=== PATIENT | female | born 1975 | race Caucasian/White ===

== ENCOUNTER → 2020-10-28 02:02 | Outpatient (CLI) | payer OTHER, SELFPAY ==
[2020-10-28 19:23] LABS: SARS-CoV-2 RNA PCR Negative
== END ==
PROVIDERS: PCP Internal Medicine; Visit Provider Otolaryngology
DX: Z01.812 Encounter for preprocedural laboratory examination (principal); Z20.822 Contact with and (suspected) exposure to COVID-19
CPT/HCPCS: C9803; U0003; U0005

== ENCOUNTER 2020-10-31 02:38 | Day surgery (SDC) | payer OTHER, SELFPAY ==
[2020-10-23 12:40] VITALS: BMI 23.8
--- NOTE | 2020-10-29 10:11 | PM.IMHP ---
H&P: HPI History of Present Illness Date/Time: 10/29/20 10:11 45 year old patient with a history of chronic tonsillitis tonsil stones and bad breath as well as sore throat presents for tonsillectomy. No changes in symptoms or medical history. Chief Complaint: Chronic tonsillitis, tonsil stones, bad breath Review of Systems Constitutional: Constitutional: Denies fatigue, Denies fever(s) and Denies lethargy Eyes: Eyes: Denies blurry vision and Denies change in vision ENT: Reports as per HPI Cardiovascular: Cardiovascular: Denies chest pain Respiratory: Respiratory: Denies cough Endocrine: Endocrine: Denies fatigue Hematologic/Lymphatic: Hematologic/Lymphatic: Denies easy bleeding, Denies easy bruising and Denies lymphadenopathy Allergic/Immunologic: Allergic/Immunologic: Denies seasonal rhinorrhea [facility] Social History Social History (Updated 10/22/20 @ 11:29 by Minna Scott MA) Years smoked: 28 Smoking status: Current every day smoker Tobacco type: cigarettes Alcohol intake: never Substance use: current Substance use type: marijuana Other substance usage details: EDIBLES Last use: 10/09/20 Spiritual care concerns: No Meds Home Medications and Allergies Home Medications Medication Instructions Recorded Confirmed Type buprenorphine 8 mg-naloxone 2 mg 1 tablet SUBLINGUAL TID 10/22/20 10/23/20 History sublingual tablet meloxicam 15 mg tablet 15 mg PO DAILY 10/22/20 10/23/20 History sumatriptan succinate 50 mg tablet 50 mg PO ONCE PRN 10/22/20 10/23/20 History topiramate 50 mg tablet 50 mg PO BID 10/22/20 10/23/20 History albuterol sulfate 1 puff INHALATION Q6H PRN 10/23/20 10/23/20 History Allergies Allergy/AdvReac Type Severity Reaction Status Date / Time ciprofloxacin Allergy Intermediate HIVES Verified 10/23/20 12:38 morphine Allergy Intermediate ITCHING Verified 10/23/20 12:38 Exam Const: General: cooperative, healthy appearing, comfortable, well developed and alert HENMT: Head: normal to inspection, normocephalic and atraumatic Ears: hearing grossly normal bilaterally, external ears normal, TM's normal bilaterally and EAC's normal General nose exam: Normal external nose present, Normal nares present, No nasal polyps present, Normal nasal mucous membranes and turbinates present and Normal septum present Face and sinus: normal facial exam Mouth: Yes Normal oral and palatal mucosa present, Yes lip normal, Yes tongue normal, Yes oropharynx normal and Yes moist mucous membranes Teeth and gingiva: dentition normal and gingiva normal Throat: posterior oropharynx normal, tonisls abnormal (2-3+, stones present, cryptic, exudative mildly) and uvula midline Eyes: General: appearance normal, both eyes and all related structures Periorbital: periorbital findings normal Eyelids: eyelids normal Conjunctivae: conjunctivae normal Sclera: sclerae normal Neck: Neck: normal visual inspection, full ROM and no lymphadenopathy Thyroid: thyroid normal Lymphatic: no lymphadenopathy noted Resp: Effort & Inspection: normal respiratory effort and able to speak in complete sentences Cardio: Jugular venous distension: no JVD Neuro: Cranial nerves: Yes CN's II-XII intact bilaterally Assessment and Plan Assessment and plan (1) Halitosis: Code(s): R19.6 - Halitosis Status: Acute Assessment and Plan: Patient presents with tonsil stones halitosis and essentially chronic tonsillitis. Plan is for the OR for tonsillectomy. The risks were discussed in great detail including tongue pain tongue numbness jaw pain jaw numbness the need for further procedures bleeding infection change in voice difficulty swallowing. Patient voiced understanding of these risks and agreed. We also discussed the possibility that her symptoms are not due to the tonsils and may not palliate her symptoms. She also voiced understanding of this possibility. (2) Chronic tonsillitis: Code(s): J35.
[2020-10-31] VITALS (9 sets, daily range): BP systolic 88–115; BP diastolic 53–76; PULSE 54–81; RESP 11–18; TEMP 36.6–37.3; O2SAT 97–100
--- NOTE | 2020-10-31 07:14 | WPDHPUPDATE1 ---
History and Physical Update Update Date/Time: 10/31/20 07:14 History and Physical has been reviewed, including an updated exam of the patient. There are NO changes in the patient's condition. Risks, benefits, and alternatives have been discussed and questions answered. Patient agrees to proceed with procedure.
[2020-10-31] MEDS: LACTATED RINGERS 1,000 ML 30 ML IV CONT (08:06)
[2020-10-31] MEDS: fentaNYL CITRATE INJ (*CRX) 100 MCG/2 ML VIAL 50 MCG IV PUSH (08:08)
--- NOTE | 2020-10-31 08:22 | P.PNAN_ITS ---
Anes - Initial Pre Proc Eval Procedure: Operation Date: 10/31/20 10:15 Proposed Procedures p Tonsillectomy - Aki Noyola MD Date/Time: 10/31/20 08:22 Surgeon: Aki Noyola MD Pre Op Diagnosis: tonsillitis Patient Data Age: 45 Gender: F Height: 5 ft 8 in Weight: 71 kg Allergies Allergy/AdvReac Type Severity Reaction Status Date / Time ciprofloxacin Allergy Intermediate HIVES Verified 10/23/20 12:38 morphine Allergy Intermediate ITCHING Verified 10/23/20 12:38 Home Medications Medication Instructions Recorded Confirmed Type buprenorphine 8 mg-naloxone 2 mg 1 tablet SUBLINGUAL TID 10/22/20 10/23/20 History sublingual tablet meloxicam 15 mg tablet 15 mg PO DAILY 10/22/20 10/23/20 History sumatriptan succinate 50 mg tablet 50 mg PO ONCE PRN 10/22/20 10/23/20 History topiramate 50 mg tablet 50 mg PO BID 10/22/20 10/23/20 History albuterol sulfate 1 puff INHALATION Q6H PRN 10/23/20 10/23/20 History Patient hx anesthesia problems: none Family hx anesthesia problems: none [facility] Past Medical History Medical History (Updated 10/31/20 @ 08:22 by Jonathan Gorman MD) Asthma Migraine Surgical History Surgical History (Updated 10/31/20 @ 08:23 by Jonathan Gorman MD) H/O: hysterectomy Social History Social History Years smoked: 28 Smoking status: Current every day smoker Tobacco type: cigarettes Alcohol intake: never Substance use: current Substance use type: marijuana Other substance usage details: EDIBLES Last use: 10/09/20 Living arrangements: alone Spiritual care concerns: No Anes - Eval Final PreProcedure Day of Procedure 10/31/20 08:22 Patient weight: normal Heart: regular rate and rhythm Lungs: clear to auscultation Airway: Mallampati scale class II and special considerations poor opening Neurological: alert and oriented Last oral intake: >/= 8 hours ASA classification: III Emergent: no Anesthetic plan: proceed Anesthesia type and monitoring: general ETT and standard monitoring Informed Consent: The patient's anesthetic plan and its attendant risks and benefits were discussed with the patient/family/POA. Questions were solicited and answers provided to the satisfaction of the patient/family/POA.
[2020-10-31] MEDS: ACETAMINOPHEN 500 MG TABLET 1000 MG PO (08:44)
--- NOTE | 2020-10-31 10:12 | PM.PROC ---
Procedure Note - Detailed Date of procedure: 10/31/20 Pre-op diagnosis: tonsillitis Post-op diagnosis: same Procedure performed: Tonsillectomy Description of procedure: The patient was correctly identified and consent was verified in the preoperative holding area. The patient was then brought to the operating room and a time-out performed. General anesthesia was induced and endotracheal tube was secured the patient's airway. The patient was then prepped and draped for the aforementioned procedure. A McIvor mouth gag was inserted the patient's airway and open revealing tonsils which were 1+ cryptic endophytic and full of stones. There were dissected in the extracapsular plane bilaterally using a Bovie electrocautery device at a setting of 10. Hemostasis was achieved using a suction Bovie at a setting of 12. The McIvor mouth gag was then lowered and reopened to reveal adequate hemostasis and no bleeding. Care the patient was turned over to Anesthesia following removal of the McIvor mouth gag. All sponges and Ray tecs were accounted for. I performed all dictated portions of the procedure. There were no complications. Anesthesia: GETA Surgeon: Aki Noyola MD Estimated blood loss (mL): 5 Drains: No Packing: No Pathology: yes Complications: No immediate complications Condition: stable Disposition: PACU Findings: One to 2+ cryptic erythematous bilateral tonsils full of stones
[2020-10-31] MEDS: fentaNYL CITRATE INJ (*CRX) 100 MCG/2 ML VIAL 25 MCG IV PUSH ×6 (10:19→11:32)
--- NOTE | 2020-10-31 10:46 | SUR.PHASEI ---
1046- sister contacted and updated on pt condition.
[2020-10-31] MEDS: ONDANSETRON INJ 4 MG/2 ML VIAL IV PUSH (10:55)
[2020-10-31] MEDS: oxyCODONE HCL (*CRX) 5 MG TAB IR PO (11:32)
== END 2020-10-31 12:20 | disposition home or self-care (01) ==
PROVIDERS: PCP Internal Medicine; Visit Provider Otolaryngology
PROC: (CPT 42826; principal; 2020-10-31 10:15)
DX: J35.01 Chronic tonsillitis (principal); J35.8 Other chronic diseases of tonsils and adenoids; R19.6 Halitosis; Z79.51 Long term (current) use of inhaled steroids; F17.210 Nicotine dependence, cigarettes, uncomplicated; F12.90 Cannabis use, unspecified, uncomplicated
CPT/HCPCS: 42826; 88304; A9270; J0330; J1100; J2250; J2405; J2704; J3010; J7120